=== PATIENT | female | born 1980 | race Caucasian/White ===

== ENCOUNTER 2016-08-19 21:35 | Emergency (ER) | payer OTHER | END 2016-08-20 03:55 | disposition home or self-care (01) | LOC: ER1 21:35 | DX: M54.5 Low back pain (principal); M25.562 Pain in left knee; M25.561 Pain in right knee; M25.571 Pain in right ankle and joints of right foot; G89.29 Other chronic pain; F17.210 Nicotine dependence, cigarettes, uncomplicated; Z79.82 Long term (current) use of aspirin | CPT/HCPCS: 96372; 99283; J1885 ==

== ENCOUNTER → 2020-11-18 | Outpatient (CLI) | payer OTHER | LOC: HEART CORB 13:30 | DX: R06.02 Shortness of breath (principal); I38 Endocarditis, valve unspecified; I34.0 Nonrheumatic mitral (valve) insufficiency | CPT/HCPCS: 93306 ==